=== PATIENT | female | born 1955 | race African-American/Black ===

== ENCOUNTER 2019-11-06 01:27 | Emergency (ER) | payer MEDICAID ==
[~2019-11-06] VITALS: Ht 167.6 cm; Wt 78.0 kg
[2019-11-06] MEDS ORDERED: AMLODIPINE 10MG TABLET PO ONE (02:00)
[2019-11-06 04:00] VITALS: BP 212/105
== END 2019-11-06 04:03 | disposition home or self-care (01) ==
LOC: ER 01:27
DX: I10 Essential (primary) hypertension (principal); Z91.14 Patient's other noncompliance with medication regimen
CPT/HCPCS: 93005; 99283